=== PATIENT | female | born 1970 | race Caucasian/White ===

== ENCOUNTER 2024-06-11 15:01 | Outpatient (OUT) | payer OTHER, SELFPAY ==
--- NOTE | 2024-06-11 | MM_ITS ---
Patient Name: CHRISTOPHER CERDA MR#: [id number] : 1970 Exam Date: 06/11/2024 Ordering Doctor: Non-Staff Physician RADIOLOGY REPORT PROCEDURE: MM TOMOSYNTHESIS SCREENING BI COMPARISON: MM TOMOSYNTHESIS SCREENING BI, 10/12/2020. MM TOMOSYNTHESIS SCREENING BI, 05/21/2018. INDICATIONS: Ran Screening Mammogram Calculator Name NCI Breast Cancer Risk Assessment Tool 5 Year Breast Cancer Risk 1.10% Lifetime Breast Cancer Risk 7.40% Personal Breast Cancer No Personal Ovarian Cancer No Treatments None Family Cancers None LOCATION: [facility] [place] BREAST COMPOSITION: There are scattered areas of fibroglandular density. FINDINGS: DIAGNOSTIC CATEGORY 1--NEGATIVE. RIGHT BREAST: No significant suspicious finding. No significant change has occurred. LEFT BREAST: No significant suspicious finding. No significant change has occurred. RECOMMENDATIONS: ROUTINE MAMMOGRAM AND CLINICAL EVALUATION IN 12 MONTHS. PLEASE NOTE: A NORMAL MAMMOGRAM DOES NOT EXCLUDE THE POSSIBILITY OF BREAST CANCER. A CLINICALLY SUSPICIOUS PALPABLE LUMP SHOULD BE BIOPSIED. Dictated by: Anthony Travis M.D. on 06/18/2024 at 15:49 Approved by: Anthony Travis M.D. on 06/18/2024 at 15:52
== END 2024-06-11 15:02 | disposition home or self-care (01) ==
LOC: MAMMO 15:06
PROVIDERS: PCP Family Medicine
DX: Z12.31 Encounter for screening mammogram for malignant neoplasm of breast (principal)
CPT/HCPCS: 77063; 77067

== ENCOUNTER 2025-06-18 10:47 | Outpatient (OUT) | payer OTHER, SELFPAY ==
--- NOTE | 2025-06-18 10:50 | MM_ITS ---
Patient Name: CHRISTOPHER CERDA MR#: [id number] : 1970 Exam Date: 06/18/2025 Ordering Doctor: DOMENICA JACOME RADIOLOGY REPORT PROCEDURE: MM TOMOSYNTHESIS SCREENING BI COMPARISON: MM TOMOSYNTHESIS SCREENING BI, 06/11/2024. MM TOMOSYNTHESIS SCREENING BI, 10/12/2020. MM TOMOSYNTHESIS SCREENING BI, 05/21/2018. INDICATIONS: screening Calculator Name NCI Breast Cancer Risk Assessment Tool 5 Year Breast Cancer Risk 1.10% Lifetime Breast Cancer Risk 7.20% Personal Breast Cancer No Personal Ovarian Cancer No Treatments None Family Cancers None LOCATION: [facility] BREAST COMPOSITION: There are scattered areas of fibroglandular density. FINDINGS: DIAGNOSTIC CATEGORY 0--INCOMPLETE: NEED ADDITIONAL IMAGING EVALUATION. RIGHT BREAST: A developing asymmetry in the retroareolar region . 3 cm from the nipple. measures up to 7 mm. seen with MLO view. LEFT BREAST: No significant suspicious finding. RECOMMENDATIONS: ADDITIONAL MAMMOGRAPHIC VIEWS REQUIRED: RIGHT BREAST - spot compression ULTRASOUND: RIGHT BREAST Dictated by: El Manzano DO on 06/18/2025 at 13:10 Approved by: El Manzano DO on 06/18/2025 at 13:18
--- OUTSIDE RECORDS SUMMARY | 2025-06-18 10:50 | XMS_ITS | Clinical Summary ---
Author Organization [facility] Address [address] [place] [address] Care Team Providers Care Insurance Risk Manager Name Role Phone Veronica Manriquez MD Primary Care Provider Social History Tobacco UseTypesPacks/DayYears UsedDateSmoking Tobacco: Never Assessed CommentsUnknownSex and Gender InformationValueDate RecordedSex Assigned at Not on fileLegal PnwIjtgjy45/15/2023 6:33 PM EDTGender IdentityNot on fileSexual OrientationNot on file Plan of Treatment Not on file Insurance Care Teams Team MemberRelationshipSpecialtyStart DateEnd Veronica Manriquez MD PCP - GeneralFamily Medicine12/27/22
--- OUTSIDE RECORDS SUMMARY | 2025-06-18 10:50 | XMS_ITS | Clinical Summary ---
Author Organization [facility] Address [address], [address] [place] [address] Care Team Providers Care Claim Technician Name Role Phone Gilmar Talavera MD Primary Care Provider [phone] Allergies No known active allergies Medications MedicationSigDispense QuantityRefillsLast FilledStart DateEnd DateStatus estradiol (ESTRACE) 1 MG tablet Indications:Premature surgical menopause on hormone replacement therapyTake 1 tablet by mouth daily 90 tablet Active Additional Information Patient not taking.Reported on 09/19/2022 metoprolol succinate (TOPROL XL) 25 MG extended release tablet Indications:Palpitations,Dizziness,Other fatigueTAKE 1 TABLET BY MOUTH EVERY DAY 90 tablet 2Active Additional Information Patient not taking.Reported on 09/19/2022 estrogens conjugated (PREMARIN) 0.625 MG/GM CREA vaginal cream Indications:Vaginal dryness, menopausal,VaginismusUse 0.5 gram nightly vaginally for 2 weeks then use 0.5 g vaginally 2 nights weekly 30 g 3Active Active Problems ProblemNoted DateDiagnosed DateFamily history of colon mwybyc0006/12/2017 Spondylosis without myelopathy or radiculopathy, cervical efasrh4202/02/2017Acute pelvic pain, taxwyh2710/28/2015 Resolved Problems ProblemNoted DateDiagnosed DateResolved DateColon cancer ybdkjqxcc12/23/2017 11/30/2017 Immunizations ImmunizationAdministration DatesNext OrsRYdI0512/10/2015 Family History Medical HistoryRelationNameCommentsAtrial FibrillationFatherCoronary Art Dis Father3 stentsHigh Blood PressureFatherDiabetesMaternal GrandmotherDiabetes MotherOtherMotherliver, diverticulitisDiabetesPaternal GrandmotherOtherPaternal Grandmotherheart attackRelationNameStatusCommentsFatherAliveMaternal Grandfather DeceasedMaternal GrandmotherDeceasedMotherAlivePaternal GrandfatherDeceased Paternal GrandmotherDeceasedSister 1AliveSister 2AliveSister 3Alive Social History Tobacco UseTypesPacks/DayYears UsedDateSmoking Tobacco: NeverSmokeless Tobacco: Never Tobacco Cessation:Counseling Given: Not Answered Alcohol UseStandard Drinks/WeekCommentsNo0 (1 standard drink = 0.6 oz pure alcohol)Interpersonal Safety Domain Source: IP Abuse ScreeningAnswerDate RecordedRead-Only, Retired: Physical CxroxKryxou78/02/2023Read-Only, Retired: Verbal IylwsVvhsro77/02/2023Read-Only, Retired: Emotional uvvbmMwbazp11/02/2023 Read-Only, Retired: Financial BkqygBfrndw46/02/2023Read-Only, Retired: Sexual mnojgXcwrcy17/02/2023CommentsNoSex and Gender InformationValueDate RecordedSex Assigned at BirthNot on fileLegal JagZvgybx10/10/2013 4:05 PM EST Gender IdentityNot on fileSexual OrientationNot on file Last Filed Vital Signs Vital SignReadingTime TakenCommentsBlood Sassfoim523/8201/20/2023 10:46 AM EDT Beihg206701/20/2023 10:46 AM DLQSnaezyzbwrn72.2 ??C (97.1 ??F)01/20/2023 10:46 AM EDTRespiratory Rjoa543901/20/2023 10:46 AM EDTOxygen Epxayazctp406%01/20/2023 10:46 AM EDTInhaled Oxygen Concentration--Jobrjt96.3 kg (122 lb)09/19/2022 11:00 AM HKHPssgea492.1 cm (5' 4.2 )09/19/2022 11:00 AM ESTBody Mass Index20.81 09/19/2022 11:00 AM EST Plan of Treatment Health MaintenanceDue DateLast DoneCommentsDepression Fbndda6005/07/1981HIV screen 1984Hepatitis C zzyzjb8805/07/1987Hepatitis B vaccine (1 of 3 - 19+ 3-dose series)05/07/19888080Wzguda43/17/0261Aylwhuatfxs91/17/2014Colorectal Cancer Screen 2014FIT/FOBT: Average risk2014Fecal-DNA (Cologuard): Average risk 2014Sigmoidoscopy/CT gqnlgtqexuly57/17/2014Pneumococcal 50+ years Vaccine (1 of 1 - PCV)2019Shingles vaccine (1 of 2)2019Breast cancer screen /, 05/21/2018, 10/13/2016, Additional history existsFlu vaccine (#1)03/21/2025OVID-19 Vaccine (1 - season)2025 DTaP/Tdap/Td vaccine (2 - Tdap)604/Cervical cancer screen DiscontinuedPap akhwgUqabzgumiixb19/04/2018HPV (without or with Pap)Discontinued Hepatitis A vaccineAged OutNo longer eligible based on patient's age to complete this topicHib vaccineAged OutNo longer eligible based on patient's age to complete this topicMeningococcal (ACWY) vaccineAged OutNo longer eligible based on patient's age to complete this topicMeningococcal B vaccineAged OutNo longer eligible based on patient's age to complete this topicPolio vaccineAged OutNo longer eligible based on patient's age to complete this topic Procedures Procedure NamePriorityDate/TimeAssociated DiagnosisCommentsMAM ANTONETTE DIGITAL SCREEN SELF REFERRAL W OR WO CAD NRXOUUQQKQnxkvkz29/22/2021 11:21 AM EST Breast cancer screening by mammogram DETECTIVE SERGEANT GCXGIBRLRbnndbg02/04/2018 10:20 AM EDT from Last 3 Months or Most Recently Relevant to Health Maintenance Results * [place] ANTONETTE DIGITAL SCREEN SELF REFERRAL W OR WO CAD BILATERAL (10/12/2020 11:21 AM EST)Anatomical RegionLateralityModalityBreastBilateralMammographySpecimen (Source)Anatomical Location / LateralityCollection Method / VolumeCollection TimeReceived Time10/12/2020 11:23 AM EST Impressions 10/12/2020 11:37 AM EST No evidence of malignancy. Advise annual screening mammography. BI-RADS 1 BIRADS: BIRADS - CATEGORY 1 Negative, no evidence of malignancy in either breast. OVERALL ASSESSMENT - NEGATIVE A letter of notification will be sent to the patient regarding the results. RECOMMENDATION: Routine bilateral annual screening mammography is recommended. Follow-up screening mammogram in 1 year is advised. Narrative 10/12/2020 11:37 AM EST EXAMINATION: SCREENING DIGITAL BILATERAL ??MAMMOGRAM WITH TOMOSYNTHESIS, 10/12/2020 TECHNIQUE: Screening mammography of the bilateral breasts was performed with tomosynthesis. ??2D standard and 3D tomosynthesis combination imaging performed through both breasts in the MLO and CC projection. ??Computer aided detection was utilized in the interpretation of this exam. COMPARISON: 21 May 2018 HISTORY: Screening. Negative family history of breast cancer. ??5 year history of hormonal replacement therapy. ??No prior breast interventions. FINDINGS: The breasts are composed of scattered fibroglandular density. ??No skin thickening, nipple contour changes, malignant type microcalcifications areas of architectural distortion or significant interval changes are noted. Procedure Note Veronica Coppola MD - 10/12/2020 EXAMINATION: SCREENING DIGITAL BILATERAL MAMMOGRAM WITH TOMOSYNTHESIS, 10/12/2020 TECHNIQUE: Screening mammography of the bilateral breasts was performed with tomosynthesis. 2D standard and 3D tomosynthesis combination imaging performed through both breasts in the MLO and CC projection. Computeraided detection was utilized in the interpretation of this exam. COMPARISON: 21 May 2018 HISTORY: Screening. Negative family history of breast cancer. 5 year history of hormonal replacement therapy. No prior breast interventions. FINDINGS: The breasts are composed of scattered fibroglandular density. No skin thickening, nipple contour changes, malignant type microcalcificationsareas of architectural distortion or significant interval changes are noted. IMPRESSION: No evidence of malignancy. Advise annual screening mammography. BI-RADS 1 BIRADS: BIRADS - CATEGORY 1 Negative, no evidence of malignancy in either breast. OVERALL ASSESSMENT - NEGATIVE A letter of notification will be sent to the patient regarding theresults. RECOMMENDATION: Routine bilateral annual screening mammography is recommended. Follow-up screening mammogram in 1 year is advised. Authorizing ProviderResult TypeResult StatusRuemi Talavera MDIMG MAMMOGRAPHY ORDERABLESFinal Result * DETECTIVE SERGEANT Cytology (04/24/2018 10:20 AM EDT)ComponentValueRef RangeTest Method Analysis TimePerformed AtPathologist SignatureCytology Report(NOTE) [id number] [facility] ??LABORATORIES CONSULTING PATHOLOGISTS [facility] ANATOMIC PATHOLOGY [address] [place] [address]. ??[place], [place] [address] GYNECOLOGIC CYTOLOGY REPORT Patient Name: CHRISTOPHER CAGLE MR#: [id number] Specimen #[id number] Source: 1: Vaginal material, (ThinPrep vial, Imaging-assisted review) Clinical History Estrogen Hysterectomy Z01.419 Routine on air talent exam without abnormal findings Abdominal pain LMP: ??09/05/15 INTERPRETATION Vaginal material, (ThinPrep vial, Imaging-assisted review): Specimen Adequacy: ?Satisfactory for evaluation. Descriptive Diagnosis: ?Negative for intraepithelial lesion or malignancy. Professor Of Environmental Studies: ?? AMBER Bonilla(ASCP) Electronically Signed Out yolande/05/09/2018 05/09/2018 12:00 AM EDTMERCY LABORATORIESSpecimen (Source)Anatomical Location / LateralityCollection Method / VolumeCollection TimeReceived Time04/24/2018 10:20 AM EDT04/25/2018 10:20 AM EDT Narrative Authorizing ProviderResult TypeResult StatusJ Carlos Ryan MDPATHOLOGY/CYTOLOGY ORDERABLESFinal ResultPerforming OrganizationAddressCity/State/ZIP CodePhone Number [facility] [address] [place] [address], [facility] [phone] [place] [id number] [place] [address] from Last 3 Months or Most Recently Relevant to Health Maintenance Insurance Advance Directives * Full Code (Latest Code Status on File) Date ActivatedDate InactivatedComments10/28/2015 12:10 PM10/29/2015 2:03 PM * Full Code Date ActivatedDate InactivatedComments10/28/2015 6:51 AM10/28/2015 11:24 AM Care Teams Team MemberRelationshipSpecialtyStart DateEnd Date Gilmar Talavera MD [address] [place] [address] PCP - General10/22/12
== END 2025-06-18 10:48 | disposition home or self-care (01) ==
LOC: MAMMO 10:47
PROVIDERS: PCP Family Medicine; Visit Provider Family Medicine
DX: Z12.31 Encounter for screening mammogram for malignant neoplasm of breast (principal); R92.8 Other abnormal and inconclusive findings on diagnostic imaging of breast
CPT/HCPCS: 77063; 77067